=== PATIENT | female | born 1965 | race Caucasian/White ===

== ENCOUNTER → 2017-02-09 | Outpatient (CLI) | payer BC | LOC: LBRF 12:26 | DX: N39.0 Urinary tract infection, site not specified (principal) | CPT/HCPCS: 87086 ==

== ENCOUNTER → 2020-12-01 | Outpatient (CLI) | payer OTHER ==
[~2020-12-01] MED LIST: CLEOCIN HCL300 MG PO; PREDNISONE20 MG PO
== END ==
LOC: KOH-I 11:59
DX: M25.561 Pain in right knee (principal); M25.562 Pain in left knee; M25.551 Pain in right hip; M25.552 Pain in left hip
CPT/HCPCS: 73522; 73562

== ENCOUNTER → 2021-06-10 | Outpatient (CLI) | payer OTHER | LOC: KOH-I 12:57 | DX: M25.521 Pain in right elbow (principal) | CPT/HCPCS: 73080 ==